=== PATIENT | male | born 1970 | race Caucasian/White ===

== ENCOUNTER 2020-07-15 07:57 | Outpatient (REF) | payer OTHER, SELFPAY ==
--- NOTE | ~2020-07-15 | XR_ITS ---
EXAMINATION: XR KNEE, LEFT CLINICAL INFORMATION: Left knee pain. COMPARISON: Left knee radiographs dated 04/27/2019 TECHNIQUE: AP standing view of the left and right knee as well as lateral and sunrise views of the left knee. FINDINGS: Mild medial compartment joint space narrowing. Small tricompartmental marginal osteophytes. No osseous erosion. No fracture or dislocation. Superior and inferior patellar enthesophytes with associated corticated ossifications, unchanged and consistent with a remote avulsion injury. Mild medial compartment joint space narrowing within the right knee. XR/XR knee LT 3V IMPRESSION: Left knee tricompartmental osteoarthritis, most prominent within the medial compartment. No significant interval change. Mild medial compartment arthrosis within the right knee.
== END 2020-07-15 07:58 | disposition home or self-care (01) ==
LOC: HO.HOSX 07:57
PROVIDERS: Visit Provider Physician Assistant
DX: M17.12 Unilateral primary osteoarthritis, left knee (principal); F17.210 Nicotine dependence, cigarettes, uncomplicated
CPT/HCPCS: 20605; 20610; 73562; 99202; J1020

== ENCOUNTER 2020-07-21 14:03 | Outpatient (REF) | payer OTHER, SELFPAY ==
--- NOTE | ~2020-07-21 | XR_ITS ---
EXAMINATION: XR HAND, RIGHT CLINICAL INFORMATION: Pain COMPARISON: Previous x-ray May 2017 TECHNIQUE: PA, lateral, and oblique views of the right hand. FINDINGS: No fracture, dislocation or bone lesion is seen. There is subluxation at the first MCP joint. There is arthritis at the first LONGTERM the MCP joint with joint space narrowing and small osteophytes. Is mild arthritis at the DIP joint of the third finger. Joint spaces are otherwise normal. Soft tissues are normal. XR/XR hand RT min 3V IMPRESSION: Mild subluxation at the first MCP joint. Arthritis at the first LONGTERM and MCP joints.
== END 2020-07-21 14:04 | disposition home or self-care (01) ==
LOC: HO.HOSX 14:03
PROVIDERS: PCP Internal Medicine; Visit Provider Orthopaedic Surgery
DX: M19.041 Primary osteoarthritis, right hand (principal); M79.641 Pain in right hand; M25.521 Pain in right elbow; M79.89 Other specified soft tissue disorders
CPT/HCPCS: 73130; 99202

== ENCOUNTER 2020-07-28 13:38 | Outpatient (REF) | payer OTHER, SELFPAY ==
[2020-07-28 14:48] LABS: Blood Urea Nitrogen 16 mg/dL (9-16); Estimated Glomerular Filt Rate > 60
== END 2020-07-28 13:39 | disposition home or self-care (01) ==
LOC: HO.MRI 13:38
PROVIDERS: Visit Provider Orthopaedic Surgery
DX: M79.89 Other specified soft tissue disorders (principal); M19.041 Primary osteoarthritis, right hand; E11.65 Type 2 diabetes mellitus with hyperglycemia; Z79.4 Long term (current) use of insulin
CPT/HCPCS: 36415; 82565; 84520

== ENCOUNTER 2020-07-30 13:13 | Outpatient (REF) | payer OTHER, SELFPAY ==
--- NOTE | ~2020-07-30 | MR_ITS ---
EXAMINATION: MRI HAND WITH AND WITHOUT CONTRAST, RIGHT CLINICAL INFORMATION: Mass right thumb for years. No trauma. COMPARISON: X-ray 07/21/2020 TECHNIQUE: MRI in a high-field magnet without and with contrast. 10 mL gadolinium. FINDINGS: Soft tissue marker positioned at the level of the 1st MCP joint. There is a lobulated cystic mass along the ulnar aspect of the distal 1st metacarpal and the MCP joint. This measures approximately 2 cm in length, 0.8 x 0.6 cm in short axis. This is bright on T2, low on T1, without evidence of enhancement in the postcontrast sequences. The distal aspect of the cystic lesion may be communicating with the MCP joint. Primary differential consideration is for a ganglion cyst. Mild 1st MCP joint arthritis. Moderate 1st CMC joint arthritis. No evidence of acute fracture. Visualized tendons appear unremarkable. No tenosynovitis. MR/MR hand RT wo/w con IMPRESSION: Cystic nonenhancing focus along the ulnar aspect of the distal 1st metacarpal MCP joint measuring 2 x 0.8 x 0.6 cm. Differential considerations include ganglion cyst. Mild 1st MCP joint arthritis. Moderate 1st CMC joint arthritis.
== END 2020-07-30 13:14 | disposition home or self-care (01) ==
LOC: HO.MRI 13:13
PROVIDERS: Visit Provider Orthopaedic Surgery
DX: M19.041 Primary osteoarthritis, right hand (principal); M79.89 Other specified soft tissue disorders
CPT/HCPCS: 73220; A9585

== ENCOUNTER → 2020-08-04 10:39 | Outpatient (BNVA) | payer OTHER, SELFPAY | PROVIDERS: Visit Provider Orthopaedic Surgery | DX: M77.11 Lateral epicondylitis, right elbow (principal); M77.01 Medial epicondylitis, right elbow | CPT/HCPCS: 99202; 99212 ==

== ENCOUNTER 2020-08-11 10:28 | Outpatient (REF) | payer OTHER, SELFPAY ==
--- NOTE | ~2020-08-11 | XR_ITS ---
EXAMINATION: XR ELBOW, RIGHT CLINICAL INFORMATION: Pain. COMPARISON: Right elbow radiographs dated 06/06/2017. TECHNIQUE: AP, lateral, and oblique views of the right elbow. FINDINGS: Ulnotrochlear joint space narrowing with prominent marginal osteophytes. Redemonstration of an ossification along the posterior, which could represent an unfused osteophyte versus ossified loose body. Small radiocapitellar marginal osteophytes. No acute fracture or dislocation. Dorsal olecranon enthesophyte. No significant joint effusion. XR/XR elbow RT 2V IMPRESSION: Moderate osteoarthritis, similar when compared to the prior examination. Olecranon spurring, unchanged.
== END 2020-08-11 10:29 | disposition home or self-care (01) ==
LOC: HO.HOSX 10:28
PROVIDERS: PCP Internal Medicine; Visit Provider Orthopaedic Surgery
DX: M19.021 Primary osteoarthritis, right elbow (principal); F17.210 Nicotine dependence, cigarettes, uncomplicated
CPT/HCPCS: 73070; 99212

== ENCOUNTER 2020-09-09 13:30 | Outpatient (RCR) | payer OTHER, SELFPAY ==
--- NOTE | 2020-08-14 14:57 | MHC.OT.OEV ---
[address] [phone] F: [phone] Occupational Therapy Evaluation Diagnosis: EPICONDYLITIS, RIGHT ELBOW Date of Onset: 03/28/18 Attending Provider: Niurka Hamm Prescribed Treatment: EVAL AND TREAT History of Current Condition: Pt WAS BRINGING HEAVY BOX OFF ELEVATED SURFACE AND BOX TIPPED TO THE RIGHT. HE REPORTS STRAINING R SHOULDER AND ELBOW. XRAY OF R ELBOW 08/13/20 REVEALS Moderate osteoarthritis, similar when compared to the prior examination. Olecranon spurring, unchanged. Significant Medical History: DM TYPE II, SMOKING, BACK PROBLEMS Precautions/Contraindications: UNIVERSAL, DM Patient Goals: TO DECREASE PAIN AND STRAIGHTEN ELBOW Hand Dominance: Right Prior Level of Function and Occupation Self Care, Employment, Leisure: UNEMPLOYED. HOBBIES INCLUDING PLAYING BASKETBALL, HAND BALL. Living Situation, Family and/or Social Support: BROTHER Current Level of Function and Occupation Self Care, Employment, Leisure: DIFFICULTIES WITH PUTTING ON SHOES, CANNOT LIFT >10 POUNDS WITH RIGHT ARM. TROUBLE WITH OPENING PAIN MEDICATION BOTTLES. USING LEFT ARM FOR MOST TASKS. Sleep: MODERATE DIFFICULTIES WITH STAYING ASLEEP DUE TO PAIN. SLEEPS ON LEFT SIDE WITH SOME RELIEF. PAIN WHEN SLEEPING WITH RIGHT ARM WHEN EXTENDED AND WEIGHTBEARING. Driving: NOT DRIVING Vision: READING GLASSES ( NOT WORN TO THERAPY) IMPAIRED IN R > L Balance: WNL Pain Assessment Pain Score: 4-9/10 Pain Scale Used: Numeric (0 - 10) Pain Location and Description: R ELBOW, POSTERIORLY Aggravating Factors: LIFTING, END RANGE ELBOW EXTENSION AND FLEXION Alleviating Factors: 500 MG OF TYLENOL; HAS NOT TRIED HEAT OR ICE Skin and Soft Tissue Assessment Skin and Soft Tissue: Contracture Swelling Comments: R THUMB MCP OA AND RADIAL COLLATERAL Sensory Assessment Temperature: Light Touch: Right Impaired Proprioception: Vibration: Comments: SEMMES MARIALUISA DIMINISHED TO LIGHT TOUCH RUE Edema Assessment Upper Extremity: Right Impaired Lower Extremity: Comments: CIRCUMFERENCE OF ELBOW AT OLECRANON RIGHT: 29.6 CM, LEFT: 28.0 CM CIRCUMFERENCE 18 CM PROXIMAL FROM U.S. RIGHT: 30.4 CM, LEFT: 28.1 CM CIRCUMFERENCE OF WRIST, DISTAL TO U.S. RIGHT: 17.8 CM, LEFT: 17.3 CM Dexterity Assessment Dexterity: WFL Comments: DENIES DIFFICULTIES WITH BUTTONS, ZIPPERS, ETC Special Tests Comments: AROM(PROM) Strength Shoulder Flexion: R 120, L 150 Extension: Abduction: Internal Rotation: External Rotation: Comments: Flexion: Extension: Abduction: Internal Rotation: External Rotation: Comments: Elbow Flexion: R 125, L 150 Extension: R 20, L 2 Pronation: R 84, L 88 Supination: R 65, L 88 Comments: Flexion: Extension: Pronation: Supination: Comments: Wrist Flexion: R 45, L 70 Extension: R 62, L 65 Ulnar Deviation: WFL Radial Deviation: WFL Comments: Flexion: Extension: Ulnar Deviation: Radial Deviation: Comments: Digits Index MCP: PIP: DIP: Long MCP: PIP: DIP: Ring MCP: PIP: DIP: Small MCP: PIP: DIP: Comments: Gross Grasp: R 38, L 75 Lateral Pinch: Two-Point Pinch: Three-Jaw Ángel: Comments: GRASP ELBOW EXTENDED R 45, L 90 WITH NO INCREASE IN PAIN REPORTED Patient Education Primary Language: Frisian Alteration Worker Required: No Current Knowledge: Understands information with skills for self-management Teaching Method: Demonstration Handouts Verbal Education Needs Identified on Evaluation: ADL's Disease Information Equipment Use Exercise Pain Safety How did patient/family demonstrate learning? Patient demonstrates Patient verbalizes Needs reinforcement Barriers to Learning: Vision Readiness for Learning: Accepting Who was educated? Patient Comments: Plan of Care Assessment: QUIRINO REPORTS ABOUT A TWO YEAR HISTORY OF R ELBOW PAIN. HE HAS LIMITED RANGE OF MOTION IN FLEXION AND EXTENSION, AND A DECREASE IN STRENGTH COMPARED TO HIS NON-DOMINANT LEFT UE. HE REPORTS 4/10 PAIN AT REST AND 9/10 PAIN WITH LIFTING AND CARRYING ITEMS. HE WOULD BENEFIT FROM SKILLED OT TO ADDRESS THE AREAS MENTIONED ABOVE AND IMPROVE QOL. STG Duration: 3 WEEKS Short Term Goals: IND HEP IND USE OF HEAT/ICE IND EDEMA MANAGEMENT OF RUE <2/10 PAIN AT REST AND LIGHT ADLs R ELBOW EXT 15 DEGREES, FLEXION 130 DEGREES L SUPINATION >75 DEGREES LTG Duration: 6 WEEKS [employer] Goals: IND PROGRESSION OF HEP REPORT <5/10 PAIN WITH LIFTING >20 POUNDS WITH PROPER BODY MECHANICS STATE MILD INTERRUPTION IN SLEEP FROM PAIN R GRASP >55 POUNDS ELBOW EXT <10 DEGREES, FLEXION >140 DEGREES Frequency and Duration: The patient will be seen 2X/WEEK FOR 6 WEEKS Treatment Plan: Therapeutic Exercise Therapeutic Activity Home Exercise Program Splinting Neuro Re-ed Patient Education Desensitization/Sensory Re-ed Edema Control ADL Training Ultrasound NMES Iontophoresis Paraffin Fluidotherapy MHP Cold Packs Joint Mobilization Soft Tissue Mobilization Kinesiotaping Electronically Signed By: DEANNA HUI OTR/L Reviewed/agree with student documentation: N/A Therapist: Please sign and return to therapist, Thank you for your referral.
--- NOTE | 2020-09-16 14:36 | MHC.OT.DC ---
[address] [phone] F: [phone] Occupational Therapy Discharge Note Provider: Niurka Hamm Diagnosis: EPICONDYLITIS, RIGHT ELBOW Date of Evaluation: 08/14/20 Date of Discharge: 09/16/20 Treatments to Date: 5 No Shows to Date: 5 Discharge Status: Improved Function Independent with HEP Visit Non-compliance Discharge Summary: MR LEVI WAS SEEN FOR OT SERVICES FOR RIGHT ELBOW PAIN. DURING HIS COURSE OF OT, HE IMPROVED HIS ROM AND STRENGTH. HE CONTINUED TO REPORT PAIN GREATEST IN THE EVENING WITH DIFFICULTIES SLEEPING. Pt WAS EDUCATED ON JOINT PROTECTION AND ACTIVITY MODIFICATION STRATEGIES, AND ISSUED A CFB FOR COMFORT. A HEP WAS ISSUED AND Pt REPORTED GOOD UNDERSTANDING. Pt WILL BE DISCHARGED DUE TO FIVE NO-SHOWS AND THE CORE ATTENDANCE POLICY. Electronically Signed By: MATTHEW TURCIOS/Candy Reviewed/agree with student documentation: N/A Therapist: Please Sign and return to therapist, thank you for your referral.
== END 2020-09-16 14:37 | disposition other institution (70) ==
LOC: HO.OT 13:30
PROVIDERS: PCP Internal Medicine; Visit Provider Physician Assistant
DX: M77.01 Medial epicondylitis, right elbow (principal); M77.11 Lateral epicondylitis, right elbow
CPT/HCPCS: 97035; 97110; 97140; 97166; 97530

== ENCOUNTER 2020-12-11 08:04 | Outpatient (REF) | payer OTHER, SELFPAY | END 2020-12-11 08:05 | disposition home or self-care (01) | LOC: HO.HOSX 08:04 | PROVIDERS: Visit Provider Orthopaedic Surgery | DX: M17.12 Unilateral primary osteoarthritis, left knee (principal) | CPT/HCPCS: 20610; 99212; J1100 ==

== ENCOUNTER 2021-11-03 19:49 | Emergency (ER) | payer OTHER, SELFPAY | END 2021-11-03 21:27 | disposition left against medical advice (07) | PROVIDERS: Emergency Provider Emergency Medicine; PCP Internal Medicine | DX: E11.65 Type 2 diabetes mellitus with hyperglycemia (principal); I10 Essential (primary) hypertension ==